=== PATIENT | female | born 1950 | race Caucasian/White ===

== ENCOUNTER 2017-03-27 13:00 | Outpatient (CLI) | payer MEDICARE, OTHER | END 2017-03-27 13:01 | disposition home or self-care (01) | LOC: BICRAD 13:00 | PROVIDERS: ATTEND Family Medicine | DX: R07.9 Chest pain, unspecified (principal); R05 Cough; I70.0 Atherosclerosis of aorta; I77.819 Aortic ectasia, unspecified site; Z98.890 Other specified postprocedural states | CPT/HCPCS: 71020 ==

== ENCOUNTER 2017-12-20 09:52 | Outpatient (CLI) | payer MEDICARE, OTHER | END 2017-12-20 09:53 | disposition home or self-care (01) | LOC: BICMAMMO 09:52 | PROVIDERS: ATTEND Internal Medicine Geriatric Medicine | DX: Z12.31 Encounter for screening mammogram for malignant neoplasm of breast (principal) | CPT/HCPCS: 77063; 77067 ==

== ENCOUNTER 2018-02-14 10:07 | Day surgery (SDC) | payer MEDICARE, MEDICAID ==
[2018-02-13 09:15] VITALS: BMI 27.4
[2018-02-14] MEDS ORDERED: Lidocaine 1% PF 5 ML VIAL ONE (11:11)
[2018-02-14] MEDS ORDERED: PROPOFOL 200 MG/20 ML VIAL ONE (11:11)
--- NOTE | 2018-02-14 12:59 | OP ---
DATE OF PROCEDURE: 02/14/2018 SURGEON: Tera Bradford M.D. PREOPERATIVE DIAGNOSES: 1. Recent episode of rectal bleeding, resolved. 2. Mild anemia, hemoglobin 11.4 down from 14 in October. POSTOPERATIVE DIAGNOSES: 1. Esophagogastroduodenoscopy notable from La fundoplication. 2. Otherwise, normal esophagogastroduodenoscopy. 3. Diverticulosis coli throughout the colon. 4. Small internal hemorrhoids. 5. Two polyps, one in the right colon removed by snare polypectomy and one in the sigmoid removed by snare polypectomy, both less than 5 mm. RECOMMENDATIONS: 1. Repeat colonoscopy in 5 years ago with regard to prior history of colon polyps. 2. High fiber diet. I suspect her bleeding was either diverticular or hemorrhoidal. She had a antoine inal prep, but I did not see evidence of stercoral ulcers or bleeding related to severe constipation. 3. PPIs. 4. Avoid NSAIDs. ANESTHESIA: TIVA. PROCEDURE IN DETAIL: After the patient was informed of the risks, benefits, and possible complicatio ns of endoscopy including perforation, bleeding, reactions to medication and aspiration, informed con sent was obtained. The patient was brought to endoscopy suite where she was sedated in gradual fashi on. Once she was comfortable, a bite block was placed in the incisural orifice. The endoscope was a dvanced through the esophagus, stomach, second and third portion of duodenum. The esophagus was norm al except for a small hiatal hernia. There were no erosions, ulcers or Clinton's. The anatomy at th e GE junction was consistent with previous La fundoplication. Retroflexed views confirmed this. Forward views in the stomach, duodenum, second and third portion appeared normal. The scope was rem dominic. The patient was turned in the room. The endoscope was advanced in the anal canal. The prep was poor . About 500 mL of sterile water was used to irrigate and clear the colon as much as possible. There was diverticulosis coli throughout the colon. There were no bleeding sites identified. There were 2 polyps, both 5 mm in size, one in the sigmoid and one in the right colon removed by hot snare polyp ectomy and submitted to Pathology. Retroflexed views in the rectum were otherwise normal. Again, no bleeding was seen. The scope was removed. The patient tolerated the procedure well with no complic ations. RECOMMENDATIONS: 1. Repeat colonoscopy in 5 years. 2. Follow up in my office if bleeding returns. 3. Stool softeners and fiber daily. 4. Continue PPI therapy.
--- NOTE | 2018-02-14 15:54 | EKG ---
Test Reason : PREOP Blood Pressure : / mmHG Vent. Rate : 073 BPM Atrial Rate : 073 BPM P-R Int : 154 ms QRS Dur : 076 ms QT Int : 420 ms P-R-T Axes : 038 005 059 degrees QTc Int : 462 ms Normal sinus rhythm Inferior infarct , age undetermined cannot be excluded Abnormal ECG Confirmed by GAURAV GRANDE ([id number]) on 02/14/2018 3:54:22 PM Referred By: HEATHER Confirmed By:GAURAV GRANDE
== END 2018-02-14 13:30 | disposition home or self-care (01) ==
LOC: SDC 10:07
PROVIDERS: ATTEND Internal Medicine Gastroenterology
PROC: 0DJ08ZZ Inspection of Upper Intestinal Tract, Via Natural or Artificial Opening Endoscopic (ICD-10-PCS; principal; 2018-02-14)
PROC: 0DBK8ZX Excision of Ascending Colon, Via Natural or Artificial Opening Endoscopic, Diagnostic (ICD-10-PCS; 2018-02-14)
PROC: 0DBN8ZX Excision of Sigmoid Colon, Via Natural or Artificial Opening Endoscopic, Diagnostic (ICD-10-PCS; 2018-02-14)
DX: K57.31 Diverticulosis of large intestine without perforation or abscess with bleeding (principal); D12.5 Benign neoplasm of sigmoid colon; K63.5 Polyp of colon; K64.8 Other hemorrhoids; K44.9 Diaphragmatic hernia without obstruction or gangrene; K21.9 Gastro-esophageal reflux disease without esophagitis; F41.9 Anxiety disorder, unspecified; I25.2 Old myocardial infarction; E78.00 Pure hypercholesterolemia, unspecified; K58.9 Irritable bowel syndrome, unspecified; G47.30 Sleep apnea, unspecified; Z86.010 Personal history of colon polyps; Z87.891 Personal history of nicotine dependence; Z79.899 Other long term (current) drug therapy; Z98.890 Other specified postprocedural states; Z88.8 Allergy status to other drugs, medicaments and biological substances; Z91.011 Allergy to milk products; Z91.02 Food additives allergy status; Z95.1 Presence of aortocoronary bypass graft
CPT/HCPCS: 88305; 93005; 93010; J2001; J2704

== ENCOUNTER 2018-02-16 14:23 | Outpatient (CLI) | payer MEDICARE, MEDICAID ==
[2018-02-16 16:01] LABS: Hemoglobin 11.1 g/dL (12.0-16.0); Mean Corpuscular HGB CONC 32.7 g/dL (32.0-36.0); Mean Corpuscular Volume 91.8 fL (78.0-98.0); Mean Platelet Volume 7.7 fL (7.4-10.4); Platelet Count 260 thou/uL (130-400); RBC Distribution Width 12.7 % (11.5-14.5); Red Blood Cell (RBC) Count 3.68 mill/uL (4.20-5.40); White Blood Cell (WBC) Count 7.5 thou/uL (4.8-10.8)
[2018-02-16 16:18] LABS: Anion Gap 11 mmol/L (10-20); BUN (Urea Nitrogen) 7 mg/dL (9.8-20.1); Calc. Creatinine Clearance 0 mL/min (70-130); Calcium 9.2 mg/dL (7.8-10.44); Carbon Dioxide 26 mmol/L (23-31); Chloride 104 mmol/L (98-107); Estimated GFR-MDRD 87; Glucose 95 mg/dL (80-115); Potassium 3.9 mmol/L (3.5-5.1); Sodium 137 mmol/L (136-145)
== END 2018-02-16 14:24 | disposition home or self-care (01) ==
LOC: LABBT 14:23
PROVIDERS: ATTEND Internal Medicine Cardiovascular Disease
DX: Z01.812 Encounter for preprocedural laboratory examination (principal); K62.5 Hemorrhage of anus and rectum; K21.9 Gastro-esophageal reflux disease without esophagitis
CPT/HCPCS: 80048; 85027

== ENCOUNTER 2018-02-21 06:10 | Day surgery (SDC) | payer MEDICARE, MEDICAID ==
[2018-02-16 14:53] VITALS: BMI 28.0
[2018-02-21] MEDS ORDERED: Fentanyl 100 MCG/2 ML VIAL ONE (06:36)
[2018-02-21] MEDS ORDERED: Midazolam HCl 2 mg/2 ml Vial ONE (06:36)
[2018-02-21] MEDS ORDERED: Lidocaine 1% (PF) 30 ML VIAL ONE (06:36)
[2018-02-21] MEDS ORDERED: Diazepam 5 MG TAB ONE (06:45)
[2018-02-21 07:03] LABS: INR-International Normal Ratio 1.1; PTT 26.2 SEC (22.9-36.1); Prothrombin Time 14.2 SEC (12.0-14.7)
[2018-02-21] MEDS ORDERED: Nitroglycerin 100MG/250ML BOT 250 ML ONE (08:10)
[2018-02-21] MEDS ORDERED: Iopamidol 370 76% 100 ML VIAL ONE (10:44)
--- NOTE | 2018-02-21 13:04 | DIS ---
Ms. Petit underwent cardiac catheterization today. It revealed the followin. Left main no obstructive stenosis. 2. LAD approximately 40% plaque, but the internal mammary graft is patent. 3. Circumflex is occluded with a widely patent graft with good flow. 4. Right coronary, there is a stent in the proximal right coronary, it is patent with no restenosis. There is diffusely diseased vessel more distally. This supplies the right ventricular branch as we ll as a very small part of the inferior wall. 5. Right coronary artery graft which I believe was placed in 2001 does have approximately 50% lesion , does not look flow limiting. Based on this, the patient should be treated medically. We have added Imdur 30 mg a day, added Plavi x 75 mg once a day starting on Monday. She said she cannot take aspirin it "tears her stomach up". At this point, no other intervention would be really appropriate. The patient does have problem with alcohol intake and the patient is well aware that is a problem for her. She recently had polyps removed. That was probably the source of her lower gastrointestinal b leeding. Her hemoglobin is 11.1.
== END 2018-02-21 13:50 | disposition home or self-care (01) ==
LOC: CCL 06:10
PROVIDERS: ATTEND Internal Medicine Cardiovascular Disease
PROC: 4A023N7 Measurement of Cardiac Sampling and Pressure, Left Heart, Percutaneous Approach (ICD-10-PCS; principal; 2018-02-21)
PROC: B2131ZZ Fluoroscopy of Multiple Coronary Artery Bypass Grafts using Low Osmolar Contrast (ICD-10-PCS; 2018-02-21)
PROC: B2111ZZ Fluoroscopy of Multiple Coronary Arteries using Low Osmolar Contrast (ICD-10-PCS; 2018-02-21)
PROC: B2181ZZ Fluoroscopy of Left Internal Mammary Bypass Graft using Low Osmolar Contrast (ICD-10-PCS; 2018-02-21)
DX: I25.110 Atherosclerotic heart disease of native coronary artery with unstable angina pectoris (principal); E78.00 Pure hypercholesterolemia, unspecified; I10 Essential (primary) hypertension; E78.5 Hyperlipidemia, unspecified; E78.2 Mixed hyperlipidemia; Z87.891 Personal history of nicotine dependence; Z79.899 Other long term (current) drug therapy; Z88.8 Allergy status to other drugs, medicaments and biological substances; Z91.02 Food additives allergy status; Z95.1 Presence of aortocoronary bypass graft; Z95.5 Presence of coronary angioplasty implant and graft
CPT/HCPCS: 76942; 85610; 85730; 93459; 99152; 99153; C1769; J1644; J2001; J2250; J3010

== ENCOUNTER 2018-09-12 19:30 | Outpatient (CLI) | payer MEDICARE, OTHER | END 2018-09-12 19:31 | disposition home or self-care (01) | LOC: SLEEPLAB 19:30 | PROVIDERS: ATTEND Physician Assistant | DX: G47.33 Obstructive sleep apnea (adult) (pediatric) (principal) | CPT/HCPCS: 95810 ==

== ENCOUNTER 2019-02-25 13:22 | Outpatient (CLI) | payer MEDICARE, OTHER ==
--- NOTE | 2019-02-25 14:02 | MMO ---
Bilateral MAMMO Bilat Screen [facility]. CLINICAL HISTORY: Patient is 68 years old and is seen for screening. The patient has no family history of breast cancer. The patient has no personal history of cancer. VIEWS: The views performed were: bilateral craniocaudal with tomosynthesis and bilateral mediolateral oblique with tomosynthesis. FILMS COMPARED: The present examination has been compared to prior imaging studies performed at [facility] on 02/24/2014, 04/15/2015, 12/15/2016 and 12/20/2017. This study has been interpreted with the assistance of computer-aided detection. MAMMOGRAM FINDINGS: There are scattered fibroglandular densities. There are vascular calcifications seen in both breasts. There are no suspicious masses, suspicious calcifications, or new areas of architectural distortion. IMPRESSION: A ROUTINE FOLLOW-UP MAMMOGRAM IN 1 YEAR IS RECOMMENDED. THE RESULTS OF THIS EXAM WERE SENT TO THE PATIENT. ACR BI-RADS Category 2 - Benign finding MAMMOGRAPHY NOTE: 1. A negative mammogram report should not delay a biopsy if a dominant of clinically suspicious mass is present. 2. Approximately 10% to 15% of breast cancers are not detected by mammography. 3. Adenosis and dense breasts may obscure an underlying neoplasm. Reported by: SARI SANTOS MD Electonically Signed: [id number]
== END 2019-02-25 13:23 | disposition home or self-care (01) ==
LOC: BICMAMMO 13:22
PROVIDERS: ATTEND Family Medicine
DX: Z12.31 Encounter for screening mammogram for malignant neoplasm of breast (principal)
CPT/HCPCS: 77063; 77067

== ENCOUNTER 2019-04-14 10:58 | Emergency (ER) | payer MEDICARE, OTHER ==
--- NOTE | 2019-04-14 12:00 | RAD ---
CHEST 2 VIEWS: HISTORY: Cough and flu-like symptoms. COMPARISON: Chest radiograph 07/18/2014. FINDINGS: Mild increased interstitial markings along the hilum bilaterally. No pneumothorax. No effusion. No acute osseous abnormality. Multiple midline sternotomy wires. Right upper quadrant surgical clips. IMPRESSION: Findings which can be seen with viral infectious process. POS: HOME
[2019-04-14 12:53] LABS: #Basophils 0.1 thou/uL (0.0-0.2); #Eosinphils 0.1 thou/uL (0.0-0.7); #Lymphocytes 2.9 thou/uL (1.20-3.40); #Neutrophils 6.2 thou/uL (1.40-6.50); %Basophils 0.7 % (0.0-1.0); %Eosinophils 1.2 % (0.0-10.0); %Lymphocytes 28.4 % (21.0-51.0); %Neutrophils 59.7 % (42.0-75.0); Hemoglobin 14.2 g/dL (12.0-16.0); Mean Corpuscular HGB CONC 33.4 g/dL (32.0-36.0); Mean Corpuscular Hemoglobin 30.4 pg (27.0-31.0); Mean Platelet Volume 7.8 fL (7.4-10.4); Platelet Count 219 thou/uL (130-400); RBC Distribution Width 12.6 % (11.5-14.5); Red Blood Cell (RBC) Count 4.68 mill/uL (4.20-5.40); White Blood Cell (WBC) Count 10.3 thou/uL (4.8-10.8)
[2019-04-14] MEDS ORDERED: Azithromycin 250 MG TAB ONE (13:02)
[2019-04-14 13:14] LABS: Anion Gap 17 mmol/L (10-20); BUN (Urea Nitrogen) 7 mg/dL (9.8-20.1); Calc. Creatinine Clearance 0 mL/min (70-130); Calcium 9.2 mg/dL (7.8-10.44); Carbon Dioxide 23 mmol/L (23-31); Chloride 104 mmol/L (98-107); Estimated GFR-MDRD Greater than 90; Glucose 110 mg/dL (80-115); Potassium 4.5 mmol/L (3.5-5.1); Sodium 139 mmol/L (136-145)
== END 2019-04-14 13:17 | disposition home or self-care (01) ==
LOC: ERS 10:58
DX: R05 Cough (principal); I10 Essential (primary) hypertension; E78.5 Hyperlipidemia, unspecified; E78.00 Pure hypercholesterolemia, unspecified; F41.9 Anxiety disorder, unspecified; Z79.899 Other long term (current) drug therapy
CPT/HCPCS: 36415; 71046; 80048; 85025; 87804; 94640; J7620

== ENCOUNTER 2019-05-20 08:01 | Emergency (ER) | payer MEDICARE, MEDICAID ==
[2019-05-20] MEDS ORDERED: Ibuprofen 800 MG TAB ONE (09:14)
[2019-05-20] MEDS ORDERED: Acetaminophen 500 MG TAB ONE (09:14)
--- NOTE | 2019-05-20 09:35 | RAD ---
PA AND LATERAL CHEST: Date: 05/20/2019 INDICATION: History of sore throat, cough, headache, and malaise. COMPARISON: Prior exam dated 04/14/19. FINDINGS: There is worsening air space opacity in the left lower lobe suspicious for developing pneumonia in th e left lower lobe. Right lung is clear. Mild cardiomegaly and post CABG is stable. Cholecystectomy ch anges are stable. No acute osseous abnormality is evident. IMPRESSION: Developing opacity in the left lower lobe suspicious for developing superimposed pneumonia. Recommend radiographic follow-up to resolution. POS: [facility]
[2019-05-20] MEDS ORDERED: Dexamethasone 10 MG/ML VIAL ONE (10:48)
[2019-05-20] MEDS ORDERED: Lidocaine 1% PF 5 ML VIAL ONE (10:48)
[2019-05-20] MEDS ORDERED: cefTRIAXone\\ROCEPHIN 1 GM VIAL ONE (10:48)
[2019-05-20] MEDS ORDERED: Azithromycin 250 MG TAB ONE (10:49)
== END 2019-05-20 12:02 | disposition home or self-care (01) ==
LOC: ERS 08:01
DX: J18.9 Pneumonia, unspecified organism (principal); E78.5 Hyperlipidemia, unspecified; I10 Essential (primary) hypertension; E78.00 Pure hypercholesterolemia, unspecified; F41.9 Anxiety disorder, unspecified; Z79.899 Other long term (current) drug therapy
CPT/HCPCS: 71046; 87081; 87430; 87804; 96372; J0696; J1100; J2001; J7620

== ENCOUNTER 2019-10-11 10:06 | Observation (INO) | payer MEDICARE, MEDICAID ==
[2019-10-11 11:24] LABS: #Basophils 0.1 thou/uL (0.0-0.2); #Eosinphils 0.2 thou/uL (0.0-0.7); #Lymphocytes 2.6 thou/uL (1.20-3.40); #Monocytes 0.6 thou/uL (0.11-0.59); #Neutrophils 3.1 thou/uL (1.40-6.50); %Eosinophils 2.4 % (0.0-10.0); %Lymphocytes 40.3 % (21.0-51.0); %Neutrophils 47.4 % (42.0-75.0); Hemoglobin 14.4 g/dL (12.0-16.0); Mean Corpuscular HGB CONC 33.6 g/dL (32.0-36.0); Mean Corpuscular Volume 92.3 fL (78.0-98.0); Mean Platelet Volume 8.2 fL (7.4-10.4); Platelet Count 210 thou/uL (130-400); RBC Distribution Width 12.5 % (11.5-14.5); Red Blood Cell (RBC) Count 4.65 mill/uL (4.20-5.40); White Blood Cell (WBC) Count 6.5 thou/uL (4.8-10.8)
[2019-10-11 11:49] LABS: ALT (SGPT) 44 U/L (8-55); AST (SGOT) 49 U/L (5-34); Albumin 4.2 g/dL (3.4-4.8); Alkaline Phosphatase 51 U/L (40-110); Anion Gap 13 mmol/L (10-20); BUN (Urea Nitrogen) 6 mg/dL (9.8-20.1); Bilirubin, Total 0.4 mg/dL (0.2-1.2); CK (CPK) 58 U/L (29-168); Calc. Creatinine Clearance 0 mL/min (70-130); Calcium 9.3 mg/dL (7.8-10.44); Carbon Dioxide 25 mmol/L (23-31); Chloride 102 mmol/L (98-107); Estimated GFR-MDRD Greater than 90; Globulin 3.4 g/dL (2.4-3.5); Glucose 112 mg/dL (80-115); Lipase 53 U/L (8-78); Magnesium 1.7 mg/dL (1.6-2.6); Potassium 4.1 mmol/L (3.5-5.1); Protein, Total 7.6 g/dL (6.0-8.3); Sodium 136 mmol/L (136-145)
[2019-10-11] MEDS ORDERED: Nitroglycerin 2% Ointment 1 INCH/1 GM Packet ONE (12:15)
--- NOTE | 2019-10-11 12:56 | RAD ---
PORTABLE CHEST 1 VIEW: DATE: 10/11/2019. TIME: 10:43 AM. HISTORY: Chest pain. COMPARISON: 05/20/2019. FINDINGS: There are changes of median sternotomy. The heart size is normal. The aorta is tortuous. Mild healthcare analyst catalina changes are again seen. No lobar consolidation, pneumothoraces, or pleural effusions identified. There are degenerative changes in the spine. IMPRESSION: No radiographic evidence of acute cardiopulmonary process. POS: [facility]
[2019-10-11] MEDS ORDERED: Ondansetron ODT 4 MG TAB SL PRN (14:25)
[2019-10-11] MEDS ORDERED: Ondansetron PF 4 MG/2 ML Vial IVP PRN ×2 (14:25→15:14)
[2019-10-11 14:26] VITALS: BMI 27.6
[2019-10-11] MEDS ORDERED: Ondansetron ODT 4 MG TAB PO PRN (15:14)
[2019-10-11] MEDS ORDERED: Nitroglycerin 0.4 MG TAB (25 Tab Bottle) PO PRN (15:14)
[2019-10-11] MEDS ORDERED: hydrALAZINE 20 MG/ML VIAL SLOW IVP PRN (15:14)
[2019-10-11] MEDS ORDERED: Acetaminophen 325 MG TAB PO PRN (15:14)
[2019-10-11 15:41] LABS: Troponin I 0.015 ng/mL (< 0.028)
--- NOTE | 2019-10-11 17:24 | CON ---
DATE OF CONSULTATION: 10/11/2019 REASON FOR CONSULTATION: Chest pain. PRIMARY MAC DEVELOPER: Kingston Zaragoza MD HISTORY OF PRESENT ILLNESS: Ms. Petit is a very pleasant 68-year-old white female, who comes to the hospital for chest pain. She has a history of coronary artery disease with previous bypass. Her last catheterization was back in February of 2018, at which time she was found to have widely patent vein grafts. The RCA vein graft had about a 50% plaque in the middle of the vein graft with a patent RCA beyond the bypass. She had been doing well since. She came in today as she has been noticing worsening chest tightness. Her troponin has been completely normal. Cardiology has been consulted for further evaluation and care. PAST MEDICAL HISTORY: 1. Coronary artery disease as above. 2. Hypertension. 3. Hyperlipidemia. SURGICAL HISTORY: 1. Coronary artery bypass grafting. 2. Cardiac catheterization in 2017 showing BARRIOS to the LAD is widely patent, completely occluded circumflex to the patent SVG to the circumflex system with good flow. There was a RCA stent in the tetlin vessel, which was patent. There is a long 80% lesion distal to the stent and a vein graft that is patent distally to this obstruction and patent SVG distal to this. 3. Cholecystectomy. FAMILY HISTORY: Mother with sudden cardiac . SOCIAL HISTORY: Former smoker. No tobacco or drugs. Currently, no alcohol use. ALLERGIES: 1. ATORVASTATIN. 2. SIMVASTATIN. 3. BUSPAR. OUTPATIENT MEDICATIONS: 1. Sublingual nitroglycerin. 2. Metoprolol succinate 25 mg a day. 3. Lisinopril 2.5 mg a day. 4. Ezetimibe 10 mg a day. 5. Rosuvastatin 20 mg a day. 6. Chlordiazepoxide 25 mg as needed. REVIEW OF SYSTEMS: A 12-point review of systems was done and was all negative unless stated in the history of present illness. PHYSICAL EXAMINATION: VITAL SIGNS: Temperature 97.8, pulse 71, respiratory rate 18, sat 95% on room air, blood pressure 142/81. GENERAL: Awake, alert, oriented x3, in no distress. HEENT: Normocephalic and atraumatic. NECK: Supple. LUNGS: Clear. CARDIOVASCULAR: S1, S2. No S3 or S4. No murmurs. ABDOMEN: Soft. Positive bowel sounds. EXTREMITIES: No edema. SKIN: Warm and dry. LABORATORY DATA: Laboratory work was reviewed. CBC is unremarkable. CMP was unremarkable. GFR of greater than 90. Troponin was negative x2. TSH was normal. Lactic acid was normal. EKG shows a sinus rhythm, no ischemic changes. Chest x-ray was unremarkable. ASSESSMENT: 1. Coronary artery disease. 2. Chronic stable angina. 3. Hypertension. PLAN: 1. Most likely she is having chronic stable angina. We will plan on increasing her antianginal therapy. We will add Imdur 30 mg daily to regimen. 2. She states that she gets severe diarrhea with both Zetia and with Crestor. She has not been taking these actually, so she may need to be considered for Repatha or Praluent in the near future. This will be done as an outpatient. 3. We will get an echocardiogram. If this is unremarkable, we will discharge home. If she fails antianginal therapy, she will need a repeat heart catheterization, but this will be in the long-term. I do not think if she does have ischemia, I would treat her medically first as we know her anatomy and unless her troponin starts to become positive or her symptoms are unstable, I would only treat medically for now. Thank you for letting us to participate in the care of your patient. We will follow. Job ID: [id number]
[2019-10-11 18:59] LABS: Troponin I Less than 0.010 ng/mL (< 0.028)
[2019-10-11] MEDS: Nitroglycerin 2% Ointment 1 INCH/1 GM Packet TOP SCH (20:31)
--- NOTE | 2019-10-11 21:18 | HP ---
PRIMARY CARE PHYSICIAN: At the [facility], Ms. Hess. CHIEF COMPLAINT: Chest pressure. HISTORY OF PRESENT ILLNESS: Ms. Petit is a very pleasant 68-year-old female, who has a history of hypertension, coronary artery disease. She has a history of bypass surgery as well as a previous stent. She says that starting yesterday, she started having some pressure in her chest and was feeling extremely tired. 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 She said it happened while she was washing the dishes. She described it as about 5/10 and says that it basically comes and goes when asked how long it lasts. There was no nausea, no vomiting. She did have some mild shortness of breath. She did not feel dizzy or lightheaded. She noticed some mild lower extremity edema as well. She says it feels "exactly like she felt when she had her heart attack before" and for this reason, she came to the ER for evaluation. The patient last saw Dr. Zaragoza about 5 to 6 months ago and she says she does not believe that she has had a stress test since about a year or so. REVIEW OF SYSTEMS: All systems are reviewed and are negative except for that mentioned in the history of present illness. PAST MEDICAL HISTORY: Significant for hypertension, coronary artery disease, and hyperlipidemia. PAST SURGICAL HISTORY: She has had a stent to the right coronary artery, as well as coronary artery bypass grafting. ALLERGIES: INCLUDE: 1. LIPITOR. 2. BUSPAR. 3. MONOSODIUM GLUTAMATE. SOCIAL HISTORY: She is a nonsmoker. She occasionally drinks. She is single. Her grandson lives with her and she is a full code. FAMILY HISTORY: Significant for aneurysm in her father. CURRENT MEDICATIONS: Include: 1. Metoprolol succinate 25 mg daily. 2. Nitroglycerin 0.4 sublingual p.r.n. 3. Multivitamin once daily. 4. Lisinopril 5 mg daily. 5. Vitamin D3 of 4000 units p.o. daily. PHYSICAL EXAMINATION: GENERAL: She is alert and oriented. She appears to be in no acute distress. She is well developed and well nourished. VITAL SIGNS: Blood pressure was 173/78, heart rate 64, respiratory rate of 18, temperature is 98.1, and O2 saturation is 95% on room air. HEENT: Pupils are equal, round, and reactive. Extraocular muscles are intact. Her sclerae anicteric. Throat, there is no erythema. No exudates. NECK: No adenopathy. No bruits. LUNGS: Clear to auscultation. There is no wheezing, no rales, no rhonchi. CARDIOVASCULAR: She had a normal S1 and S2. There is no S3 or S4. No murmurs, clicks, or rubs. ABDOMEN: Soft, nontender, and nondistended. Positive for bowel sounds. No rebound. No guarding. No organomegaly. EXTREMITIES: There is no clubbing or cyanosis. No edema. No calf tenderness. No joint effusions. NEUROLOGIC: Essentially nonfocal. LABORATORY DATA: White blood cell count is 6.5, hemoglobin 14.4, hematocrit is 42.9, and platelet count is 210. Sodium 136, potassium 4.1, chloride is 102, CO2 is 25, BUN of 6, creatinine 0.63, glucose is 112. TSH is 1.85. EKG with sinus rhythm. She had Q wave in lead III, but otherwise it was negative and so she had some nonspecific ST-T wave changes. Chest x-ray shows some mild cardiomegaly with increased pulmonary vascular markings. ASSESSMENT AND PLAN: This is a pleasant 68-year-old female, who presents to the emergency room with chest pressure, which she says feels "exactly the way it did when she had previous heart attack." She will be placed in observation. We will continue to trend her cardiac enzymes. Continue aspirin and nitrates. Low-dose beta-krunal as tolerated. Obtain a nuclear stress test and also given her complicated cardiac history, I will go ahead and consult her oncologist. 1. Hypertension. We will need to reconcile and restart her blood pressure medicines as well as p.r.n. medicines. 2. Hyperlipidemia. Continue her statin. 3. Further recommendations to follow. Job ID: [id number]
[2019-10-11] MEDS ORDERED: Melatonin 3 MG TAB PO PRN (22:40)
[2019-10-12 04:17] LABS: #Basophils 0.1 thou/uL (0.0-0.2); #Eosinphils 0.2 thou/uL (0.0-0.7); #Lymphocytes 2.4 thou/uL (1.20-3.40); #Monocytes 0.5 thou/uL (0.11-0.59); #Neutrophils 2.7 thou/uL (1.40-6.50); %Basophils 1.3 % (0.0-1.0); %Eosinophils 3.9 % (0.0-10.0); %Lymphocytes 40.2 % (21.0-51.0); %Monocytes 9.1 % (0.0-10.0); %Neutrophils 45.5 % (42.0-75.0); Hemoglobin 13.3 g/dL (12.0-16.0); Mean Corpuscular HGB CONC 34.2 g/dL (32.0-36.0); Mean Corpuscular Hemoglobin 31.2 pg (27.0-31.0); Mean Corpuscular Volume 91.3 fL (78.0-98.0); Mean Platelet Volume 8.5 fL (7.4-10.4); Platelet Count 191 thou/uL (130-400); RBC Distribution Width 12.5 % (11.5-14.5); Red Blood Cell (RBC) Count 4.26 mill/uL (4.20-5.40); White Blood Cell (WBC) Count 5.9 thou/uL (4.8-10.8)
[2019-10-12 04:53] LABS: Anion Gap 10 mmol/L (10-20); BUN (Urea Nitrogen) 6 mg/dL (9.8-20.1); Calc. Creatinine Clearance 94 mL/min (70-130); Carbon Dioxide 28 mmol/L (23-31); Chloride 104 mmol/L (98-107); Estimated GFR-MDRD Greater than 90; Glucose 114 mg/dL (80-115); Sodium 138 mmol/L (136-145)
[2019-10-12] MEDS: Nitroglycerin 2% Ointment 1 INCH/1 GM Packet TOP SCH ×2 (05:30→14:23)
[2019-10-12] MEDS ORDERED: Aspirin 325 mg Enteric Coated Tablet PO SCH (09:00)
[2019-10-12] MEDS ORDERED: Lisinopril 5 MG TAB PO SCH (09:00)
[2019-10-12] MEDS: Enoxaparin Sodium 40 MG/0.4 ML SYRINGE SC SCH ×2 (10:40→10:41)
--- NOTE | 2019-10-12 11:54 | PDOC.HOSPP ---
- Subjective Encounter Date: 10/12/19 Encounter Time: 11:52 Subjective: Ms. Petit was seen today in follow-up of chest pressure. She says she is feeling better today. She did not have any symptoms overnight. - Objective Vital Signs & Weight: Vital Signs (12 hours) Temp Pulse Resp BP BP Pulse Ox 10/12/19 11:35 97.7 F 85 16 143/68 H 93 L 10/12/19 07:25 98.4 F 67 18 140/68 93 L 10/12/19 04:02 98.0 F 63 18 151/72 H 96 Weight Weight 151 lb 4.8 oz I&O: 10/11/19 10/12/19 10/13/19 06:59 06:59 06:59 Intake Total 880 Output Total 2370 Balance -1490 Result Diagrams: 10/12/19 03:45 10/12/19 03:45 Hospitalist ROS - Medication Medications: Active Medications Generic Name Dose Route Start Last Admin Trade Name Freq PRN Reason Stop Dose Admin Aspirin 325 mg 10/12/19 09:00 10/12/19 10:39 Ecotrin PO Not Given DAILY [facility] Enoxaparin Sodium 40 mg 10/12/19 09:00 10/12/19 10:41 Lovenox SC Not Given 0900 [facility] Lisinopril 5 mg 10/12/19 09:00 10/12/19 10:39 Zestril PO 5 mg DAILY [facility] Administration Melatonin 3 mg 10/11/19 22:40 10/11/19 23:03 Melatonin PO 3 mg HS PRN Administration Insomnia Metoprolol Succinate 25 mg 10/12/19 09:00 10/12/19 10:40 Toprol Xl PO 25 mg DAILY [facility] Administration Nitroglycerin 0.5 inch 10/11/19 22:00 10/12/19 05:30 Nitro-Bid 2% Ointment TOP Not Given Q8HR [facility] Pantoprazole Sodium 40 mg 10/12/19 09:00 10/12/19 10:39 Protonix PO Not Given DAILY [facility] - Exam Eye: PERRL Heart: RRR, no murmur, no gallops, no rubs, normal peripheral pulses Respiratory: CTAB, no wheezes, no rales, no ronchi, normal chest expansion, no tachypnea Gastrointestinal: soft, non-tender, non-distended, normal bowel sounds Extremities: no cyanosis, no edema Hosp A/P (1) Chest pain Code(s): R07.9 - CHEST PAIN, UNSPECIFIED Status: Acute (2) Hyperlipidemia Code(s): E78.5 - HYPERLIPIDEMIA, UNSPECIFIED Status: Chronic (3) Hypertension Code(s): I10 - ESSENTIAL (PRIMARY) HYPERTENSION Status: Chronic (4) CAD (coronary artery disease) Code(s): I25.10 - ATHSCL HEART DISEASE OF [place] CORONARY ARTERY W/O ANG PCTRS Status: Chronic - Plan * Chest pain- as per Cardiology- this is stable angina * Echo has been order, and await results * HTN- blood pressure is stable * Dyslipidemia- She may be a candidate for Repatha * Await Cardiology recommendations
[2019-10-12 15:32] VITALS: BP 140/76; TEMP 98
--- NOTE | 2019-10-12 15:32 | PDOC.CPN ---
- Subjective Date: 10/12/19 Time: 15:30 Interval history: No more chest pains. No new issues. - Review of Systems General: denies: fever/chills, weight/appetite/sleep changes, night sweats, fatigue Respiratory: denies: cough, congestion, shortness of breath, exercise intolerance Cardiovascular: denies: chest pain, palpitation, edema, paroxysmal nocturnal dyspnea, orthopnea Gastrointestinal: denies: nausea, vomiting, diarrhea, constipation, abd pain, GI bleeding Musculoskeletal: denies: pain, tenderness, stiffness, swelling, arthritis/ arthralgias Neurological: denies: numbness, syncope, seizure, weakness - Objective Allergies/Adverse Reactions: Allergies Allergy/AdvReac Type Severity Reaction Status Date / Time atorvastatin calcium Allergy Verified 07/08/19 23:51 [From Lipitor] buspirone HCl [From BuSpar] Allergy Verified 07/08/19 23:51 monosodium glutamate Allergy Verified 07/08/19 23:51 simvastatin Allergy Verified 07/08/19 23:51 Visit Medications: Current Medications Acetaminophen (Tylenol) 650 mg PO Q4H PRN PRN Reason: Headache/Fever/Mild Pain (1-3) Aspirin (Ecotrin) 325 mg PO DAILY [facility] Last Admin: 10/12/19 10:39 Dose: Not Given Cholecalciferol (Vitamin D3) 4,000 units PO Q7DAYS [facility] Enoxaparin Sodium (Lovenox) 40 mg SC 0900 [facility] Last Admin: 10/12/19 10:41 Dose: Not Given Hydralazine HCl (Apresoline) 10 mg SLOW IVP Q4H PRN PRN Reason: SBP > 180 and HR < 70 Lisinopril (Zestril) 5 mg PO DAILY [facility] Last Admin: 10/12/19 10:39 Dose: 5 mg Melatonin (Melatonin) 3 mg PO HS PRN PRN Reason: Insomnia Last Admin: 10/11/19 23:03 Dose: 3 mg Metoprolol Succinate (Toprol Xl) 25 mg PO DAILY [facility] Last Admin: 10/12/19 10:40 Dose: 25 mg Nitroglycerin (Nitro-Bid 2% Ointment) 0.5 inch TOP Q8HR [facility] Last Admin: 10/12/19 14:23 Dose: 0.5 inch Nitroglycerin (Nitrostat) 0.4 mg PO Q5MIN PRN PRN Reason: Chest Pain Ondansetron HCl (Zofran Odt) 4 mg PO Q6H PRN PRN Reason: Nausea/Vomiting Ondansetron HCl (Zofran) 4 mg IVP Q6H PRN PRN Reason: Nausea/Vomiting Pantoprazole Sodium (Protonix) 40 mg PO DAILY [facility] Last Admin: 10/12/19 10:39 Dose: Not Given Vital Signs & Weight: Vital Signs Temp Pulse Resp BP BP Pulse Ox 10/12/19 11:35 97.7 F 85 16 143/68 H 93 L 10/12/19 07:25 98.4 F 67 18 140/68 93 L 10/12/19 04:02 98.0 F 63 18 151/72 H 96 Admit Weight 151 lb 4.8 oz Weight 151 lb 4.8 oz - Physical Exam General: alert & oriented x3 HEENT: mucus membranes moist Neck: supple neck Cardiac: regular rate and rhythm Lungs: clear to auscultation Neuro: grossly intact Abdomen: active bowel sounds Extremities: no edema Skin: clear Musculoskeletal: no pain - Labs Result Diagrams: 10/12/19 03:45 10/12/19 03:45 Troponin/CKMB Troponin I Less than 0.010 ng/mL (< 0.028) 10/11/19 18:10 - Telemetry Sinus rhythms and dysrhythmias: sinus rhythm - Assessment/Plan Assessment/Plan: 1. Chronic stable angina 2. CAD, no ACS. 3. S/P CABG PLAN: - Unremarkable echo - Add Imdur 30 mg daily to her regimen - August discharge home. - Follow up with Dr. Zaragoza in 2-4 weeks.
--- NOTE | 2019-10-12 18:48 | DIS ---
DATE OF ADMISSION: 10/11/2019 DATE OF DISCHARGE: 10/12/2019 PRIMARY CARE PHYSICIAN: Ms. Hess at [facility]. DISCHARGE DISPOSITION: Home. DISCHARGE DIAGNOSES: 1. Stable angina. 2. Coronary artery disease. 3. Hypertension. 4. Dyslipidemia. DISCHARGE MEDICATIONS: Include, 1. Toprol-XL 25 mg p.o. daily. 2. Isosorbide mononitrate 30 mg daily. 3. Nitroglycerin 0.4 sublingual p.r.n. 4. Multivitamin once a day. 5. Lisinopril 5 mg p.o. daily. 6. Vitamin D 4000 units p.o. daily. CODE STATUS: Full code. ALLERGIES: ATORVASTATIN, BUSPIRONE, MONOSODIUM GLUTAMATE, AND SIMVASTATIN. IMAGING: The patient had an echocardiogram, which showed an ejection fraction of 55% to 60%. There was grade 1/3 diastolic dysfunction. Moderately dilated left atrium. HOSPITAL COURSE: Ms. Petit is a pleasant 68-year-old female, who came to the emergency room with complaints of chest pain and chest pressure. She said her symptoms were exactly the same as when she had to have surgery for her heart. For this reason, she was placed in observation and her hand stoner was consulted. He felt that her symptoms were related to stable angina and should respond to medical treatment. An echocardiogram was done to assess her wall motion. This appeared to be clinically stable. Imdur was added to her regimen and she was subsequently discharged home to have close followup with Dr. Zaragoza who is her usual hand stoner and with her primary care physician in 1 to 2 weeks. Job ID: [id number]
== END 2019-10-12 16:20 | disposition home or self-care (01) ==
LOC: ERS 10:06 → 2NO 12:48 → INTOOBSV 12:48
PROVIDERS: ADMIT Internal Medicine; ATTEND Internal Medicine
DX: I25.118 Atherosclerotic heart disease of native coronary artery with other forms of angina pectoris (principal); I10 Essential (primary) hypertension; E78.5 Hyperlipidemia, unspecified; Z79.899 Other long term (current) drug therapy; Z88.8 Allergy status to other drugs, medicaments and biological substances; Z95.1 Presence of aortocoronary bypass graft
CPT/HCPCS: 36415; 71045; 80048; 80053; 82550; 83605; 83690; 83735; 84443; 84484; 85025; 93005; 93306; 94760; G0378; J1650

== ENCOUNTER 2020-02-27 10:26 | Outpatient (CLI) | payer MEDICARE, MEDICAID ==
--- NOTE | 2020-02-27 14:21 | MMO ---
Bilateral MAMMO Bilat Screen [facility]. CLINICAL HISTORY: Patient is 69 years old and is seen for screening. The patient has no family history of breast cancer. The patient has no personal history of cancer. VIEWS: The views performed were: bilateral craniocaudal with tomosynthesis and bilateral mediolateral oblique with tomosynthesis. FILMS COMPARED: The present examination has been compared to prior imaging studies performed at [facility] on 04/15/2015, 12/15/2016, 12/20/2017 and 02/25/2019. This study has been interpreted with the assistance of computer-aided detection. MAMMOGRAM FINDINGS: There are scattered fibroglandular densities. Benign calcifications are noted bilaterally. There are no suspicious masses, suspicious calcifications, or new areas of architectural distortion. IMPRESSION: THERE IS NO MAMMOGRAPHIC EVIDENCE OF MALIGNANCY. A ROUTINE FOLLOW-UP MAMMOGRAM IN 1 YEAR IS RECOMMENDED. THE RESULTS OF THIS EXAM WERE SENT TO THE PATIENT. ACR BI-RADS Category 2 - Benign finding MAMMOGRAPHY NOTE: 1. A negative mammogram report should not delay a biopsy if a dominant of clinically suspicious mass is present. 2. Approximately 10% to 15% of breast cancers are not detected by mammography. 3. Adenosis and dense breasts may obscure an underlying neoplasm. Reported by: NATIVIDAD JEAN MD Electonically Signed: [id number]
== END 2020-02-27 10:27 | disposition home or self-care (01) ==
LOC: BICMAMMO 10:26
PROVIDERS: ATTEND Family Medicine
DX: Z12.31 Encounter for screening mammogram for malignant neoplasm of breast (principal)
CPT/HCPCS: 77063; 77067

== ENCOUNTER 2020-06-12 14:35 | Outpatient (CLI) | payer MEDICARE, MEDICAID ==
--- NOTE | 2020-06-12 17:31 | RAD ---
LUMBAR SPINE TWO VIEWS: 06/12/20 INDICATION: Low back pain with right sided sciatica. COMPARISON: PA and lateral of the chest dated 04/04/19. FINDINGS: There is stable mild wedge compression of L2. There is grade I anterolisthesis of L4 on L5. There is mild retrolisthesis of L3 on L4 and L2 on L3 which are likely degenerative. There is moderate calcifi cations involving the abdominal aorta. Surgical clips are seen within the right upper quadrant. No ac [place] fracture or subluxation is evident. There are five lumbar type vertebrae. There is a moderate da unt of retained stool within the colon. IMPRESSION: 1. Moderate to severe lumbar spondylosis. 2. Chronic wedge compression fracture of L2. POS: [facility]
== END 2020-06-12 14:36 | disposition home or self-care (01) ==
LOC: BICRAD 14:35
PROVIDERS: ATTEND Family Medicine
DX: M54.41 Lumbago with sciatica, right side (principal); M47.816 Spondylosis without myelopathy or radiculopathy, lumbar region; M48.56XA Collapsed vertebra, not elsewhere classified, lumbar region, initial encounter for fracture
CPT/HCPCS: 72100

== ENCOUNTER 2020-06-29 08:44 | Outpatient (CLI) | payer MEDICARE, MEDICAID | END 2020-06-29 08:45 | disposition home or self-care (01) | LOC: BICMAMMO 08:44 | PROVIDERS: ATTEND Family Medicine | DX: Z13.820 Encounter for screening for osteoporosis (principal) | CPT/HCPCS: 77080 ==

== ENCOUNTER 2020-06-29 10:31 | Outpatient (CLI) | payer MEDICARE, MEDICAID | END 2020-06-29 10:32 | disposition home or self-care (01) | LOC: BICMRI 10:31 | PROVIDERS: ATTEND Family Medicine | DX: M54.41 Lumbago with sciatica, right side (principal); G89.29 Other chronic pain; M47.816 Spondylosis without myelopathy or radiculopathy, lumbar region; Z13.820 Encounter for screening for osteoporosis; Z78.0 Asymptomatic menopausal state | CPT/HCPCS: 72148; 77080 ==

== ENCOUNTER 2021-02-11 07:14 | Outpatient (CLI) | payer MEDICARE, MEDICAID | END 2021-02-11 07:15 | disposition home or self-care (01) | LOC: BICULT 07:14 | PROVIDERS: ATTEND Family Medicine | DX: R10.13 Epigastric pain (principal); K76.0 Fatty (change of) liver, not elsewhere classified | CPT/HCPCS: 76700; 76856 ==

== ENCOUNTER 2021-03-05 10:47 | Outpatient (CLI) | payer MEDICARE, OTHER | END 2021-03-05 10:48 | disposition home or self-care (01) | LOC: BICMAMMO 10:47 | PROVIDERS: ATTEND Family Medicine | DX: N63.20 Unspecified lump in the left breast, unspecified quadrant (principal); N64.4 Mastodynia | CPT/HCPCS: 76642; 77066; G0279 ==

== ENCOUNTER 2021-04-30 14:20 | Inpatient (IN) | payer MEDICARE, MEDICAID ==
[2021-04-30] MEDS ORDERED: Iopamidol-370 76% 500 ML 1 ML ONE (14:51)
[2021-04-30 15:44] VITALS: BMI 27.4
[2021-04-30] MEDS ORDERED: Ondansetron PF 4 MG/2 ML Vial IVP PRN (15:52)
[2021-04-30] MEDS ORDERED: Ondansetron ODT 4 MG TAB PO PRN (15:52)
[2021-04-30] MEDS ORDERED: Acetaminophen 325 MG TAB PO PRN (15:52)
[2021-04-30] MEDS: Sodium Chloride 0.9% 1,000 ML IV SCH (16:28)
[2021-04-30 16:41] LABS: SARS-CoV-2 NAA Rapid Test Not Detected (NotDetected)
[2021-04-30 17:16] LABS: #Basophils 0.1 thou/uL (0.0-0.2); #Eosinphils 0.1 thou/uL (0.0-0.7); #Lymphocytes 2.3 thou/uL (1.20-3.40); #Monocytes 0.7 thou/uL (0.11-0.59); #Neutrophils 3.7 thou/uL (1.40-6.50); %Basophils 1.3 % (0.0-1.0); %Eosinophils 1.9 % (0.0-10.0); %Lymphocytes 33.5 % (21.0-51.0); %Monocytes 9.5 % (0.0-10.0); %Neutrophils 53.7 % (42.0-75.0); Hemoglobin 13.7 g/dL (12.0-16.0); Mean Corpuscular HGB CONC 32.7 g/dL (32.0-36.0); Mean Corpuscular Hemoglobin 30.5 pg (27.0-31.0); Mean Corpuscular Volume 93.2 fL (78.0-98.0); Platelet Count 208 thou/uL (130-400); RBC Distribution Width 12.5 % (11.5-14.5); Red Blood Cell (RBC) Count 4.48 mill/uL (4.20-5.40); White Blood Cell (WBC) Count 6.8 thou/uL (4.8-10.8)
[2021-04-30 17:37] LABS: Anion Gap 13 mmol/L (10-20); BUN (Urea Nitrogen) 7 mg/dL (9.8-20.1); Calc. Creatinine Clearance 90 mL/min (70-130); Calcium 9.1 mg/dL (7.8-10.44); Carbon Dioxide 26 mmol/L (23-31); Chloride 106 mmol/L (98-107); Glucose 102 mg/dL (80-115); Potassium 3.9 mmol/L (3.5-5.1); Sodium 141 mmol/L (136-145)
[2021-04-30] MEDS: Acetaminophen 650 MG Suppository PR PRN (21:02)
[2021-04-30] MEDS: Pantoprazole 40 MG VIAL IVP SCH (21:13)
[2021-05-01 06:21] LABS: #Eosinphils 0.1 thou/uL (0.0-0.7); #Monocytes 0.5 thou/uL (0.11-0.59); #Neutrophils 2.6 thou/uL (1.40-6.50); %Basophils 0.7 % (0.0-1.0); %Eosinophils 2.7 % (0.0-10.0); %Lymphocytes 38.1 % (21.0-51.0); %Monocytes 9.8 % (0.0-10.0); %Neutrophils 48.8 % (42.0-75.0); Hemoglobin 13.7 g/dL (12.0-16.0); Mean Corpuscular HGB CONC 33.4 g/dL (32.0-36.0); Mean Corpuscular Hemoglobin 31.5 pg (27.0-31.0); Mean Corpuscular Volume 94.1 fL (78.0-98.0); Platelet Count 197 thou/uL (130-400); RBC Distribution Width 12.7 % (11.5-14.5); Red Blood Cell (RBC) Count 4.35 mill/uL (4.20-5.40); White Blood Cell (WBC) Count 5.3 thou/uL (4.8-10.8)
[2021-05-01] MEDS: Sodium Chloride 0.9% 1,000 ML IV SCH ×2 (06:32→20:35)
[2021-05-01 06:43] LABS: Anion Gap 12 mmol/L (10-20); BUN (Urea Nitrogen) 8 mg/dL (9.8-20.1); Calc. Creatinine Clearance 86 mL/min (70-130); Calcium 8.9 mg/dL (7.8-10.44); Carbon Dioxide 27 mmol/L (23-31); Chloride 106 mmol/L (98-107); Glucose 117 mg/dL (80-115); Potassium 4.2 mmol/L (3.5-5.1); Sodium 141 mmol/L (136-145)
[2021-05-01] MEDS: Pantoprazole 40 MG VIAL IVP SCH ×2 (10:00→20:36)
[2021-05-01] MEDS: hydrALAZINE 20 MG/ML VIAL SLOW IVP PRN (11:49)
[2021-05-01] MEDS ORDERED: Nitroglycerin 0.4 MG TAB (25 Tab Bottle) SL PRN (11:59)
[2021-05-01] MEDS: Metoprolol Tartrate 5 MG/5 ML VIAL IVP SCH ×3 (13:26→20:36)
[2021-05-01] MEDS ORDERED: Cepastat Lozenges 1 LOZ PO PRN (15:13)
[2021-05-01] MEDS ORDERED: Lorazepam 2 MG/ML VIAL SLOW IVP PRN (19:44)
[2021-05-01] MEDS ORDERED: Melatonin 3 MG TAB PO SCH (20:00)
[2021-05-01] MEDS: Acetaminophen 650 MG Suppository PR PRN (20:37)
[2021-05-02] MEDS: Metoprolol Tartrate 5 MG/5 ML VIAL IVP SCH ×4 (02:24→21:38)
[2021-05-02 07:27] LABS: #Eosinphils 0.1 thou/uL (0.0-0.7); #Lymphocytes 1.7 thou/uL (1.20-3.40); #Monocytes 0.6 thou/uL (0.11-0.59); #Neutrophils 3.4 thou/uL (1.40-6.50); %Basophils 0.5 % (0.0-1.0); %Eosinophils 2.4 % (0.0-10.0); %Lymphocytes 29.5 % (21.0-51.0); %Monocytes 9.7 % (0.0-10.0); Hemoglobin 13.6 g/dL (12.0-16.0); Mean Corpuscular Hemoglobin 30.6 pg (27.0-31.0); Mean Corpuscular Volume 92.6 fL (78.0-98.0); Mean Platelet Volume 8.6 fL (7.4-10.4); Platelet Count 180 thou/uL (130-400); RBC Distribution Width 12.4 % (11.5-14.5); Red Blood Cell (RBC) Count 4.45 mill/uL (4.20-5.40); White Blood Cell (WBC) Count 5.8 thou/uL (4.8-10.8)
[2021-05-02 07:42] LABS: Anion Gap 15 mmol/L (10-20); BUN (Urea Nitrogen) 7 mg/dL (9.8-20.1); Calc. Creatinine Clearance 100 mL/min (70-130); Calcium 8.5 mg/dL (7.8-10.44); Carbon Dioxide 19 mmol/L (23-31); Chloride 107 mmol/L (98-107); Glucose 103 mg/dL (80-115); Potassium 3.8 mmol/L (3.5-5.1); Sodium 137 mmol/L (136-145)
[2021-05-02] MEDS: Pantoprazole 40 MG VIAL IVP SCH ×2 (09:28→21:37)
[2021-05-02] MEDS ORDERED: PROPOFOL 200 MG/20 ML VIAL ONE (10:00)
[2021-05-02] MEDS ORDERED: Lidocaine 1% PF 5 ML VIAL ONE (10:00)
[2021-05-02] MEDS: Sodium Chloride 0.9% 1,000 ML IV SCH (22:04)
[2021-05-03] MEDS: Metoprolol Tartrate 5 MG/5 ML VIAL IVP SCH ×4 (02:33→22:25)
[2021-05-03 06:42] LABS: #Eosinphils 0.2 thou/uL (0.0-0.7); #Lymphocytes 1.7 thou/uL (1.20-3.40); #Monocytes 0.5 thou/uL (0.11-0.59); %Basophils 0.7 % (0.0-1.0); %Eosinophils 2.9 % (0.0-10.0); %Lymphocytes 26.6 % (21.0-51.0); %Monocytes 8.3 % (0.0-10.0); %Neutrophils 61.5 % (42.0-75.0); Hemoglobin 13.2 g/dL (12.0-16.0); Mean Corpuscular HGB CONC 33.2 g/dL (32.0-36.0); Mean Corpuscular Volume 93.4 fL (78.0-98.0); Mean Platelet Volume 8.2 fL (7.4-10.4); Platelet Count 180 thou/uL (130-400); RBC Distribution Width 12.3 % (11.5-14.5); Red Blood Cell (RBC) Count 4.26 mill/uL (4.20-5.40); White Blood Cell (WBC) Count 6.5 thou/uL (4.8-10.8)
[2021-05-03 07:04] LABS: Anion Gap 12 mmol/L (10-20); BUN (Urea Nitrogen) 6 mg/dL (9.8-20.1); Calc. Creatinine Clearance 98 mL/min (70-130); Calcium 8.9 mg/dL (7.8-10.44); Carbon Dioxide 23 mmol/L (23-31); Chloride 107 mmol/L (98-107); Glucose 102 mg/dL (80-115); Potassium 3.6 mmol/L (3.5-5.1); Sodium 138 mmol/L (136-145)
[2021-05-03] MEDS: Sodium Chloride 0.9% 1,000 ML IV SCH ×2 (07:53→10:40)
[2021-05-03] MEDS: Pantoprazole 40 MG VIAL IVP SCH ×2 (08:24→21:50)
[2021-05-03] MEDS: Lorazepam 2 MG/ML VIAL SLOW IVP PRN (21:51)
[2021-05-04] MEDS: Sodium Chloride 0.9% 1,000 ML IV SCH (00:30)
[2021-05-04 06:43] LABS: #Eosinphils 0.2 thou/uL (0.0-0.7); #Lymphocytes 1.2 thou/uL (1.20-3.40); #Monocytes 0.6 thou/uL (0.11-0.59); #Neutrophils 3.6 thou/uL (1.40-6.50); %Basophils 0.8 % (0.0-1.0); %Eosinophils 2.9 % (0.0-10.0); %Lymphocytes 21.7 % (21.0-51.0); %Neutrophils 63.7 % (42.0-75.0); Hemoglobin 13.2 g/dL (12.0-16.0); Mean Corpuscular HGB CONC 32.8 g/dL (32.0-36.0); Mean Corpuscular Hemoglobin 30.9 pg (27.0-31.0); Mean Corpuscular Volume 94.1 fL (78.0-98.0); Mean Platelet Volume 8.5 fL (7.4-10.4); Platelet Count 165 thou/uL (130-400); RBC Distribution Width 12.3 % (11.5-14.5); Red Blood Cell (RBC) Count 4.27 mill/uL (4.20-5.40); White Blood Cell (WBC) Count 5.6 thou/uL (4.8-10.8)
[2021-05-04 06:56] LABS: Anion Gap 13 mmol/L (10-20); BUN (Urea Nitrogen) 4 mg/dL (9.8-20.1); Calc. Creatinine Clearance 89 mL/min (70-130); Calcium 8.7 mg/dL (7.8-10.44); Carbon Dioxide 20 mmol/L (23-31); Chloride 107 mmol/L (98-107); Glucose 177 mg/dL (80-115); Sodium 137 mmol/L (136-145)
[2021-05-04] MEDS: Pantoprazole 40 MG VIAL IVP SCH ×2 (09:39→20:36)
[2021-05-04] MEDS ORDERED: Potassium Chloride 10 MEQ in Premix Bag 1 BAG IVPB SCH (11:45)
[2021-05-04] MEDS ORDERED: Potassium Bicarbonate/Cit Ac 20 MEQ TAB PO SCH (12:15)
[2021-05-04] MEDS ORDERED: ceFAZolin 2 GM/Dextrose 50 ML 2 GM in Premix Bag 1 BAG IVPB SCH (19:00)
[2021-05-04] MEDS: hydrALAZINE 20 MG/ML VIAL SLOW IVP PRN (20:30)
[2021-05-04] MEDS: Lorazepam 2 MG/ML VIAL SLOW IVP PRN (20:32)
[2021-05-05] MEDS: Pantoprazole 40 MG VIAL IVP SCH ×2 (09:30→20:34)
[2021-05-05] MEDS ORDERED: Sodium Chloride 0.9% 0 ML ONE (15:53)
[2021-05-05] MEDS ORDERED: Bupivacaine PF 0.5% 30 ML VIAL ONE (15:53)
[2021-05-05] MEDS ORDERED: Heparin 5,000 UNITS/ML VIAL ONE (15:53)
[2021-05-05] MEDS ORDERED: Lidocaine 2% PF 5 ML VIAL ONE (15:53)
[2021-05-05] MEDS ORDERED: Xylocaine 1% w/ Epi 1:100K 10 ML VIAL ONE (15:53)
[2021-05-05] MEDS ORDERED: Bupivacaine 0.25% HCL 30 ML VIAL ONE (15:55)
[2021-05-05] MEDS ORDERED: Fentanyl 100 MCG/2 ML VIAL ONE ×3 (16:02→18:53)
[2021-05-05] MEDS ORDERED: ceFAZolin 2 GM/Dextrose 50 ML IVPB ONE (16:10)
[2021-05-05] MEDS ORDERED: Dexamethasone 20 MG/5 ML VIAL ONE (16:18)
[2021-05-05] MEDS ORDERED: Glycopyrrolate 0.2 MG/ML 5 ML SYRINGE ONE (16:18)
[2021-05-05] MEDS ORDERED: Rocuronium Bromide 10 MG/ML (10ML VIAL) ONE (16:18)
[2021-05-05] MEDS ORDERED: PROPOFOL 200 MG/20 ML VIAL ONE (16:18)
[2021-05-05] MEDS ORDERED: Ondansetron PF 4 MG/2 ML Vial ONE (16:18)
[2021-05-05] MEDS ORDERED: PHENYLEPHRINE-NS 100 MCG/ML 10 ML SYRINGE ONE (16:18)
[2021-05-05] MEDS ORDERED: Lidocaine 1% PF 5 ML VIAL ONE (16:18)
[2021-05-05] MEDS ORDERED: Sodium Chloride 0.9% 10 ML ONE (17:48)
[2021-05-05] MEDS ORDERED: Sodium Chloride 0.9% 20 ML ONE (17:50)
[2021-05-05] MEDS ORDERED: Promethazine HCl 25 MG/ML VIAL IM PRN (18:33)
[2021-05-05] MEDS ORDERED: Ondansetron HCl/PF 4 MG/2 ML Vial IVP PRN (18:33)
[2021-05-05] MEDS: Lorazepam 2 MG/ML VIAL SLOW IVP PRN (21:07)
[2021-05-05 23:37] LABS: Potassium 3.8 mmol/L (3.5-5.1)
[2021-05-05] MEDS: Morphine 4 MG/ML VIAL SLOW IVP PRN (23:52)
[2021-05-06] MEDS: Morphine 4 MG/ML VIAL SLOW IVP PRN ×4 (04:15→18:30)
[2021-05-06] MEDS: Pantoprazole 40 MG VIAL IVP SCH ×2 (08:46→20:32)
[2021-05-06] MEDS: Simethicone Chewable 80 MG TAB PO PRN ×2 (13:04→18:34)
[2021-05-06] MEDS: Amoxicillin/Potassium Clav 600 mg/5 ml Oral Suspension PO SCH (20:26)
[2021-05-06] MEDS: Lorazepam 2 MG/ML VIAL SLOW IVP PRN (20:27)
[2021-05-07] MEDS: Amoxicillin/Potassium Clav 600 mg/5 ml Oral Suspension PO SCH ×2 (06:57→18:43)
[2021-05-07] MEDS ORDERED: Acetaminophen 325 MG TAB PO PRN (06:59)
[2021-05-07] MEDS: Simethicone Chewable 80 MG TAB PO PRN ×2 (09:38→18:43)
[2021-05-07] MEDS: Pantoprazole 40 MG VIAL IVP SCH ×2 (09:42→20:44)
[2021-05-07] MEDS: Morphine 4 MG/ML VIAL SLOW IVP PRN (09:46)
[2021-05-07] MEDS ORDERED: Piperacillin/Tazobactam 3.375 GM in Sodium Chloride 0.9% 100 ML IVPB SCH ×3 (10:00→15:00)
[2021-05-07] MEDS ORDERED: Iopamidol-370 76% 500 ML 1 ML ONE (10:10)
[2021-05-07] MEDS ORDERED: Metoprolol Tartrate 50 MG TAB PO SCH (10:30)
[2021-05-07 13:16] LABS: #Eosinphils 0.1 thou/uL (0.0-0.7); #Monocytes 0.6 thou/uL (0.11-0.59); #Neutrophils 7.4 thou/uL (1.40-6.50); %Basophils 0.3 % (0.0-1.0); %Lymphocytes 20.1 % (21.0-51.0); %Monocytes 5.7 % (0.0-10.0); %Neutrophils 72.8 % (42.0-75.0); Hemoglobin 13.4 g/dL (12.0-16.0); Mean Corpuscular HGB CONC 32.4 g/dL (32.0-36.0); Mean Corpuscular Hemoglobin 30.8 pg (27.0-31.0); Mean Corpuscular Volume 94.9 fL (78.0-98.0); Mean Platelet Volume 7.9 fL (7.4-10.4); Platelet Count 202 thou/uL (130-400); RBC Distribution Width 12.5 % (11.5-14.5); Red Blood Cell (RBC) Count 4.35 mill/uL (4.20-5.40); White Blood Cell (WBC) Count 10.1 thou/uL (4.8-10.8)
[2021-05-07] MEDS ORDERED: Polyethylene Glycol 3350 17 GM Packet PO SCH (13:30)
[2021-05-07 13:39] LABS: Anion Gap 14 mmol/L (10-20); BUN (Urea Nitrogen) 5 mg/dL (9.8-20.1); Calc. Creatinine Clearance 85 mL/min (70-130); Calcium 8.8 mg/dL (7.8-10.44); Carbon Dioxide 23 mmol/L (23-31); Chloride 104 mmol/L (98-107); Glucose 191 mg/dL (80-115); Potassium 3.5 mmol/L (3.5-5.1); Sodium 137 mmol/L (136-145)
[2021-05-07 15:17] LABS: SARS-CoV-2 PCR by NAA Not Detected (NotDetected)
[2021-05-07] MEDS: Lorazepam 2 MG/ML VIAL SLOW IVP PRN ×2 (15:56→20:44)
[2021-05-07] MEDS ORDERED: Lorazepam 2 MG/ML VIAL SLOW IVP SCH (16:00)
[2021-05-07] MEDS: Metoprolol Tartrate 50 MG TAB PO SCH (20:44)
[2021-05-08] MEDS: Amoxicillin/Potassium Clav 600 mg/5 ml Oral Suspension PO SCH ×2 (05:39→18:43)
[2021-05-08] MEDS: Simethicone Chewable 80 MG TAB PO PRN ×2 (05:42→18:50)
[2021-05-08] MEDS: Pantoprazole 40 MG VIAL IVP SCH ×2 (08:37→21:23)
[2021-05-08] MEDS: Metoprolol Tartrate 50 MG TAB PO SCH ×2 (08:38→21:23)
[2021-05-08] MEDS: Acetaminophen 650 MG Suppository PR PRN (08:54)
[2021-05-08] MEDS ORDERED: Polyethylene Glycol 3350 17 GM Packet PO SCH (09:00)
[2021-05-08] MEDS: Morphine 4 MG/ML VIAL SLOW IVP PRN (13:24)
[2021-05-08] MEDS: Lorazepam 2 MG/ML VIAL SLOW IVP PRN (21:23)
[2021-05-08] MEDS: Polyethylene Glycol 3350 17 GM Packet PER TUBE SCH (21:24)
[2021-05-09] MEDS: Morphine 4 MG/ML VIAL SLOW IVP PRN ×2 (03:08→21:05)
[2021-05-09] MEDS: Amoxicillin/Potassium Clav 600 mg/5 ml Oral Suspension PO SCH ×2 (05:56→21:06)
[2021-05-09 08:47] LABS: #Eosinphils 0.1 thou/uL (0.0-0.7); #Lymphocytes 1.9 thou/uL (1.20-3.40); #Monocytes 0.7 thou/uL (0.11-0.59); #Neutrophils 6.1 thou/uL (1.40-6.50); %Basophils 0.1 % (0.0-1.0); %Eosinophils 1.6 % (0.0-10.0); %Lymphocytes 21.9 % (21.0-51.0); %Monocytes 7.8 % (0.0-10.0); %Neutrophils 68.6 % (42.0-75.0); Hemoglobin 12.7 g/dL (12.0-16.0); Mean Corpuscular HGB CONC 32.7 g/dL (32.0-36.0); Mean Corpuscular Hemoglobin 30.7 pg (27.0-31.0); Mean Corpuscular Volume 93.9 fL (78.0-98.0); Mean Platelet Volume 7.8 fL (7.4-10.4); Platelet Count 218 thou/uL (130-400); RBC Distribution Width 12.2 % (11.5-14.5); Red Blood Cell (RBC) Count 4.15 mill/uL (4.20-5.40); White Blood Cell (WBC) Count 8.8 thou/uL (4.8-10.8)
[2021-05-09] MEDS: Metoprolol Tartrate 50 MG TAB PO SCH ×2 (08:55→21:04)
[2021-05-09] MEDS: Pantoprazole 40 MG VIAL IVP SCH ×2 (08:56→21:36)
[2021-05-09] MEDS: Polyethylene Glycol 3350 17 GM Packet PER TUBE SCH ×2 (08:57→21:36)
[2021-05-09 09:18] LABS: Anion Gap 12 mmol/L (10-20); BUN (Urea Nitrogen) 6 mg/dL (9.8-20.1); Calc. Creatinine Clearance 88 mL/min (70-130); Calcium 9.1 mg/dL (7.8-10.44); Carbon Dioxide 24 mmol/L (23-31); Chloride 105 mmol/L (98-107); Glucose 140 mg/dL (80-115); Potassium 4.2 mmol/L (3.5-5.1); Sodium 137 mmol/L (136-145)
[2021-05-09 21:42] VITALS: BP 143/84; TEMP 98.7
== END 2021-05-09 21:30 | disposition home or self-care (01) | DRG 356 ==
LOC: SURG A 14:20 → OBSVTOIN 15:52
PROVIDERS: ADMIT Family Medicine; ATTEND Internal Medicine
PROC: 0DJ08ZZ Inspection of Upper Intestinal Tract, Via Natural or Artificial Opening Endoscopic (ICD-10-PCS; principal; 2021-05-02)
PROC: 0JH60WZ Insertion of Totally Implantable Vascular Access Device into Chest Subcutaneous Tissue and Fascia, Open Approach (ICD-10-PCS; 2021-05-05)
PROC: 05HM33Z Insertion of Infusion Device into Right Internal Jugular Vein, Percutaneous Approach (ICD-10-PCS; 2021-05-05)
PROC: B5131ZA Fluoroscopy of Right Jugular Veins using Low Osmolar Contrast, Guidance (ICD-10-PCS; 2021-05-05)
PROC: B543ZZA Ultrasonography of Right Jugular Veins, Guidance (ICD-10-PCS; 2021-05-05)
PROC: 0DH68UZ Insertion of Feeding Device into Stomach, Via Natural or Artificial Opening Endoscopic (ICD-10-PCS; 2021-05-05)
DX: C15.3 Malignant neoplasm of upper third of esophagus (principal); J69.0 Pneumonitis due to inhalation of food and vomit; K94.23 Gastrostomy malfunction; I10 Essential (primary) hypertension; E78.5 Hyperlipidemia, unspecified; I25.10 Atherosclerotic heart disease of native coronary artery without angina pectoris; K21.9 Gastro-esophageal reflux disease without esophagitis; K22.2 Esophageal obstruction; E87.6 Hypokalemia; I34.0 Nonrheumatic mitral (valve) insufficiency; Y83.8 Other surgical procedures as the cause of abnormal reaction of the patient, or of later complication, without mention of misadventure at the time of the procedure; Z20.822 Contact with and (suspected) exposure to COVID-19; Z88.8 Allergy status to other drugs, medicaments and biological substances; Z79.899 Other long term (current) drug therapy; Z95.1 Presence of aortocoronary bypass graft
CPT/HCPCS: 36415; 70491; 71045; 71260; 74018; 74019; 74177; 76000; 80048; 84132; 85025; 93306; 94660; C1788; C9113; J0360; J0690; J1100; J1642; J1644; J2001; J2060; J2270; J2405; J2543; J2704; J3010; J3490; J7050; Q0162; Q9967; S0020; U0002; U0003; U0005

== ENCOUNTER 2021-05-13 08:50 | Day surgery (SDC) | payer MEDICARE, MEDICAID ==
[2021-05-11 13:19] VITALS: BMI 25.6
[2021-05-13] MEDS ORDERED: Fentanyl 100 MCG/2 ML VIAL ONE (10:48)
[2021-05-13] MEDS ORDERED: Midazolam HCl 2 mg/2 ml Vial ONE (10:48)
[2021-05-13] MEDS ORDERED: Lidocaine 1% (PF) 30 ML VIAL ONE (11:11)
[2021-05-13] MEDS ORDERED: PROPOFOL 200 MG/20 ML VIAL ONE (11:33)
== END 2021-05-13 13:21 | disposition home or self-care (01) ==
LOC: SDC 08:50
PROVIDERS: ATTEND Internal Medicine Pulmonary Disease
PROC: 0BJ08ZZ Inspection of Tracheobronchial Tree, Via Natural or Artificial Opening Endoscopic (ICD-10-PCS; principal; 2021-05-13)
DX: C15.9 Malignant neoplasm of esophagus, unspecified (principal); G47.33 Obstructive sleep apnea (adult) (pediatric); E78.5 Hyperlipidemia, unspecified; I25.10 Atherosclerotic heart disease of native coronary artery without angina pectoris; I10 Essential (primary) hypertension; I25.2 Old myocardial infarction; K21.9 Gastro-esophageal reflux disease without esophagitis; M19.90 Unspecified osteoarthritis, unspecified site; G89.29 Other chronic pain; M54.9 Dorsalgia, unspecified; Z79.899 Other long term (current) drug therapy; Z88.8 Allergy status to other drugs, medicaments and biological substances; Z95.5 Presence of coronary angioplasty implant and graft
CPT/HCPCS: J2001; J2250; J2704; J3010; J7620

== ENCOUNTER 2021-05-14 09:00 | Outpatient (CLI) | payer MEDICARE, MEDICAID | END 2021-05-14 09:01 | disposition home or self-care (01) | LOC: PET 09:00 | PROVIDERS: ATTEND Radiology Radiation Oncology | DX: C15.3 Malignant neoplasm of upper third of esophagus (principal); I65.22 Occlusion and stenosis of left carotid artery | CPT/HCPCS: 78815; A9552 ==

== ENCOUNTER 2021-07-21 19:44 | Inpatient (IN) | payer OTHER, MEDICAID, MEDICARE ==
[~2021-07-21 19:44] MED LIST: Iopamidol-370 76% 500 ML 1 ML ONE
[2021-07-21] MEDS ORDERED: Ondansetron PF 4 MG/2 ML Vial ONE (20:03)
[2021-07-21] MEDS ORDERED: Morphine 4 MG/ML VIAL ONE (20:03)
[2021-07-21] MEDS ORDERED: metroNIDAZOLE 500 MG in Premix Bag 1 BAG IVPB SCH (20:30)
[2021-07-21 20:46] LABS: #Lymphocytes 1.2 thou/uL (1.20-3.40); #Monocytes 0.7 thou/uL (0.11-0.59); #Neutrophils 3.9 thou/uL (1.40-6.50); %Basophils 0.2 % (0.0-1.0); %Eosinophils 0.7 % (0.0-10.0); %Lymphocytes 20.6 % (21.0-51.0); %Monocytes 12.3 % (0.0-10.0); %Neutrophils 66.1 % (42.0-75.0); Hemoglobin 6.4 g/dL (12.0-16.0); Mean Corpuscular HGB CONC 33.1 g/dL (32.0-36.0); Mean Corpuscular Hemoglobin 31.4 pg (27.0-31.0); Mean Corpuscular Volume 94.7 fL (78.0-98.0); Platelet Count 413 thou/uL (130-400); RBC Distribution Width 14.9 % (11.5-14.5); Red Blood Cell (RBC) Count 2.03 mill/uL (4.20-5.40)
[2021-07-21 20:58] LABS: INR-International Normal Ratio 1.5; PTT 34.4 sec (22.9-36.1); Prothrombin Time 17.8 sec (12.0-14.7)
[2021-07-21 21:15] LABS: ALT (SGPT) Less than 7 U/L (8-55); AST (SGOT) 8 U/L (5-34); Alkaline Phosphatase 41 U/L (40-110); Anion Gap 10 mmol/L (10-20); BUN (Urea Nitrogen) 6 mg/dL (9.8-20.1); Bilirubin, Total 0.2 mg/dL (0.2-1.2); Calc. Creatinine Clearance 0 mL/min (70-130); Calcium 6.8 mg/dL (7.8-10.44); Carbon Dioxide 21 mmol/L (23-31); Chloride 106 mmol/L (98-107); Globulin 2.5 g/dL (2.4-3.5); Glucose 127 mg/dL (80-115); Lipase 76 U/L (8-78); Potassium 3.3 mmol/L (3.5-5.1); Protein, Total 4.5 g/dL (5.8-8.1); Sodium 134 mmol/L (136-145)
[2021-07-21] MEDS ORDERED: Ketamine 50 MG/ML (10ML VIAL) ONE (22:21)
[2021-07-21] MEDS ORDERED: Potassium Chloride 20 MEQ TAB ONE (22:41)
[2021-07-21] MEDS ORDERED: Pot Chloride/Pot Bicarb/Cit Ac 25 mEq Effervescent Tablet ONE ×2 (22:42)
[2021-07-21] MEDS ORDERED: Piperacillin/Tazobactam 3.375 GM VIAL ONE (22:52)
[2021-07-21 23:14] LABS: Bilirubin Negative (Negative); Blood, Urine Negative (Negative); Clarity Clear (Clear); Glucose, Urine (Dipstick) Normal (Negative); Ketone, Urine Negative (Negative); Leukocyte Negative Leu/uL (Negative); Nitrite Negative (Negative); Protein, Urine (Dipstick) Negative (Neg-Trace); Specific Gravity, Urine 1.011 (1.002-1.036); Urobilinogen Normal mg/dL (Less than 2)
[2021-07-21] MEDS ORDERED: Norepinephrine 4 MG/4 ML VIAL ONE (23:26)
[2021-07-21 23:38] LABS: SARS-CoV-2 NAA Rapid Test Not Detected (NotDetected)
[2021-07-21] MEDS ORDERED: Acetaminophen 325 MG TAB PO PRN (23:42)
[2021-07-21] MEDS ORDERED: Norepinephrine 8 MG/0.9% NS 250 ML IVPB SCH (23:45)
[2021-07-21] MEDS ORDERED: Potassium Chloride 40 MEQ in Sodium Chloride 0.9% 250 ML 250 ML IVPB SCH (23:59)
[2021-07-22 00:41] VITALS: BMI 23.1
[2021-07-22] MEDS ORDERED: Melatonin 3 MG TAB PO PRN (01:21)
[2021-07-22] MEDS: Sodium Chloride 0.9% 1,000 ML IV SCH ×4 (01:22→18:46)
[2021-07-22] MEDS: Piperacillin/Tazobactam 3.375 GM in Sodium Chloride 0.9% 100 ML IVPB SCH ×3 (04:56→20:31)
[2021-07-22 05:22] LABS: #Lymphocytes 1.2 thou/uL (1.20-3.40); #Monocytes 0.8 thou/uL (0.11-0.59); #Neutrophils 4.6 thou/uL (1.40-6.50); %Basophils 0.2 % (0.0-1.0); %Eosinophils 0.4 % (0.0-10.0); %Lymphocytes 17.6 % (21.0-51.0); %Monocytes 12.6 % (0.0-10.0); %Neutrophils 69.3 % (42.0-75.0); Mean Corpuscular HGB CONC 33.7 g/dL (32.0-36.0); Mean Corpuscular Hemoglobin 31.2 pg (27.0-31.0); Mean Corpuscular Volume 92.5 fL (78.0-98.0); Platelet Count 271 thou/uL (130-400); RBC Distribution Width 13.4 % (11.5-14.5); White Blood Cell (WBC) Count 6.7 thou/uL (4.8-10.8)
[2021-07-22 05:51] LABS: Anion Gap 8 mmol/L (10-20); BUN (Urea Nitrogen) 4 mg/dL (9.8-20.1); Calc. Creatinine Clearance 122 mL/min (70-130); Calcium 5.9 mg/dL (7.8-10.44); Carbon Dioxide 19 mmol/L (23-31); Chloride 114 mmol/L (98-107); Glucose 95 mg/dL (80-115); Magnesium 1.3 mg/dL (1.6-2.6); Potassium 3.9 mmol/L (3.5-5.1); Sodium 137 mmol/L (136-145)
[2021-07-22] MEDS ORDERED: Calcium Gluc 4.6 MEQ/10 ML (100 MG/ML) SLOW IVP ONE (05:59)
[2021-07-22] MEDS ORDERED: Magnesium 2 GM/50 ML(in water) 2 GM in Premix Bag 1 BAG IVPB SCH (06:00)
[2021-07-22] MEDS: Famotidine/PF 20 mg/2ml Vial SLOW IVP SCH ×2 (10:03→20:31)
[2021-07-22 12:56] LABS: Hemoglobin 12.4 g/dL (12.0-16.0)
[2021-07-22 21:26] LABS: Hemoglobin 9.5 g/dL (12.0-16.0)
[2021-07-23] MEDS: Piperacillin/Tazobactam 3.375 GM in Sodium Chloride 0.9% 100 ML IVPB SCH ×3 (04:33→20:20)
[2021-07-23] MEDS: Sodium Chloride 0.9% 1,000 ML IV SCH ×3 (04:34→12:27)
[2021-07-23 05:10] LABS: Anion Gap 8 mmol/L (10-20); BUN (Urea Nitrogen) Less than 4 mg/dL (9.8-20.1); Calc. Creatinine Clearance 119 mL/min (70-130); Calcium 6.7 mg/dL (7.8-10.44); Carbon Dioxide 21 mmol/L (23-31); Chloride 109 mmol/L (98-107); Glucose 77 mg/dL (80-115); Magnesium 1.6 mg/dL (1.6-2.6); Potassium 3.4 mmol/L (3.5-5.1); Sodium 135 mmol/L (136-145)
[2021-07-23 06:59] LABS: Hemoglobin 9.9 g/dL (12.0-16.0); MDiff Complete? YES; Mean Corpuscular HGB CONC 34.6 g/dL (32.0-36.0); Mean Corpuscular Volume 92.4 fL (78.0-98.0); Mean Platelet Volume 6.3 fL (7.4-10.4); Platelet Count 253 thou/uL (130-400); RBC Distribution Width 14.2 % (11.5-14.5); Red Blood Cell (RBC) Count 3.09 mill/uL (4.20-5.40); White Blood Cell (WBC) Count 4.5 thou/uL (4.8-10.8)
[2021-07-23] MEDS ORDERED: Electrolyte Replacement Protocol 1 EACH FS ONE (07:07)
[2021-07-23] MEDS ORDERED: Magnesium Sulfate 2 GM in Sodium Chloride 0.9% 100 ML IVPB SCH (07:15)
[2021-07-23] MEDS ORDERED: Potassium Chloride 20 MEQ in Premix Bag 1 BAG IVPB SCH (07:15)
[2021-07-23] MEDS ORDERED: Potassium Chloride 20 MEQ TAB PO SCH (07:15)
[2021-07-23] MEDS ORDERED: Electrolyte Replacement Protocol FS PRN (07:15)
[2021-07-23] MEDS ORDERED: Magnesium 2 GM/50 ML(in water) 2 GM in Premix Bag 1 BAG IVPB SCH (07:30)
[2021-07-23] MEDS ORDERED: Potassium Bicarbonate/Cit Ac 20 MEQ TAB PO SCH (07:45)
[2021-07-23] MEDS: Famotidine 20 MG TAB PO SCH ×2 (07:50→20:20)
[2021-07-23 08:25] LABS: Band 25 % (5-11); Lymphocytes 17 % (21-51); Metamyelocyte 5 % (0-0); Monocytes 4 % (0-10); Myelocyte 1 % (0-0); Neutrophil 47 % (42-75); Nucleated RBC 1 % (0); Platelet Morphology Comment Appears Adequate; Polychromasia SLIGHT = 2-3 cells (100X) (0-2/hpf)
[2021-07-23 13:04] LABS: Potassium 3.2 mmol/L (3.5-5.1)
[2021-07-23] MEDS: Lactated Ringer's 1,000 ML IV SCH (17:04)
[2021-07-23] MEDS: Ondansetron PF 4 MG/2 ML Vial IVP PRN (20:18)
[2021-07-24] MEDS: Potassium Chloride 20 MEQ in Premix Bag 1 BAG IVPB SCH ×2 (01:16→03:37)
[2021-07-24] MEDS: Piperacillin/Tazobactam 3.375 GM in Sodium Chloride 0.9% 100 ML IVPB SCH ×2 (03:37→11:23)
[2021-07-24] MEDS: Ondansetron PF 4 MG/2 ML Vial IVP PRN ×2 (03:37→11:24)
[2021-07-24] MEDS: Lactated Ringer's 1,000 ML IV SCH (05:33)
[2021-07-24 06:49] LABS: Hemoglobin 9.7 g/dL (12.0-16.0); Mean Corpuscular HGB CONC 34.3 g/dL (32.0-36.0); Mean Corpuscular Hemoglobin 31.5 pg (27.0-31.0); Mean Corpuscular Volume 91.9 fL (78.0-98.0); Mean Platelet Volume 5.8 fL (7.4-10.4); Platelet Count 342 thou/uL (130-400); RBC Distribution Width 14.1 % (11.5-14.5); Red Blood Cell (RBC) Count 3.07 mill/uL (4.20-5.40); White Blood Cell (WBC) Count 4.4 thou/uL (4.8-10.8)
[2021-07-24 07:00] LABS: Phosphorus 2.1 mg/dL (2.3-4.7)
[2021-07-24 07:00] LABS: ALT (SGPT) Less than 7 U/L (8-55); AST (SGOT) 11 U/L (5-34); Albumin 2.3 g/dL (3.4-4.8); Alkaline Phosphatase 41 U/L (40-110); Anion Gap 11 mmol/L (10-20); BUN (Urea Nitrogen) Less than 4 mg/dL (9.8-20.1); Bilirubin, Total 0.3 mg/dL (0.2-1.2); Calc. Creatinine Clearance 116 mL/min (70-130); Calcium 7.3 mg/dL (7.8-10.44); Carbon Dioxide 22 mmol/L (23-31); Chloride 107 mmol/L (98-107); Globulin 2.8 g/dL (2.4-3.5); Glucose 76 mg/dL (80-115); Magnesium 1.7 mg/dL (1.6-2.6); Potassium 3.7 mmol/L (3.5-5.1); Protein, Total 5.1 g/dL (5.8-8.1); Sodium 136 mmol/L (136-145)
[2021-07-24 07:38] LABS: Band 33 % (5-11); Lymphocytes 16 % (21-51); MDiff Complete? YES; Metamyelocyte 2 % (0-0); Monocytes 11 % (0-10); Neutrophil 31 % (42-75); Platelet Morphology Comment Appears Adequate; Polychromasia SLIGHT = 2-3 cells (100X) (0-2/hpf); Reactive Lymphocytes 7 % (0-10); Tear Drops SLIGHT = 2-5 cells (100X) (0-1/hpf)
[2021-07-24] MEDS ORDERED: Magnesium 2 GM/50 ML(in water) 2 GM in Premix Bag 1 BAG IVPB SCH (09:15)
[2021-07-24] MEDS: Famotidine 20 MG TAB PO SCH (09:21)
[2021-07-24 15:22] VITALS: BP 126/84; TEMP 97.9
== END 2021-07-24 16:33 | disposition home health service (06) | DRG 377 ==
LOC: ERS 19:44 → CCU 22:10 → T4-A 07-23 10:43
PROVIDERS: ADMIT Internal Medicine; ATTEND Family Medicine
PROC: 30233N1 Transfusion of Nonautologous Red Blood Cells into Peripheral Vein, Percutaneous Approach (ICD-10-PCS; principal; 2021-07-21)
PROC: 3E033XZ Introduction of Vasopressor into Peripheral Vein, Percutaneous Approach (ICD-10-PCS; 2021-07-21)
DX: K57.33 Diverticulitis of large intestine without perforation or abscess with bleeding (principal); R57.8 Other shock; D62 Acute posthemorrhagic anemia; C15.9 Malignant neoplasm of esophagus, unspecified; I25.810 Atherosclerosis of coronary artery bypass graft(s) without angina pectoris; Z20.822 Contact with and (suspected) exposure to COVID-19; K21.9 Gastro-esophageal reflux disease without esophagitis; E78.00 Pure hypercholesterolemia, unspecified; E78.5 Hyperlipidemia, unspecified; F41.9 Anxiety disorder, unspecified; E87.6 Hypokalemia; I10 Essential (primary) hypertension; E83.42 Hypomagnesemia; L59.8 Other specified disorders of the skin and subcutaneous tissue related to radiation; Z90.49 Acquired absence of other specified parts of digestive tract; Z95.1 Presence of aortocoronary bypass graft; Z90.710 Acquired absence of both cervix and uterus; Z88.8 Allergy status to other drugs, medicaments and biological substances; Z95.5 Presence of coronary angioplasty implant and graft; Z87.891 Personal history of nicotine dependence; Z93.1 Gastrostomy status
CPT/HCPCS: 36415; 36430; 36556; 51701; 71045; 74177; 80048; 80053; 81003; 83605; 83690; 83735; 84100; 85025; 85610; 85730; 86850; 86900; 86901; 87040; 87086; 96365; 96368; 96374; 96375; 99152; J0610; J2270; J2405; J2543; J3475; J3480; J3490; J7050; J7120; P9016; Q9967; S0028; U0002

== ENCOUNTER 2021-10-19 10:15 | Outpatient (CLI) | payer MEDICARE, OTHER | END 2021-10-19 10:16 | disposition home or self-care (01) | LOC: PET 10:15 | PROVIDERS: ATTEND Radiology Radiation Oncology | DX: C15.3 Malignant neoplasm of upper third of esophagus (principal) | CPT/HCPCS: 78815; A9552 ==

== ENCOUNTER 2021-11-02 10:50 | Outpatient (CLI) | payer MEDICARE | END 2021-11-02 10:51 | disposition home or self-care (01) | LOC: LABBT 10:50 | PROVIDERS: ATTEND Internal Medicine Gastroenterology | DX: Z20.822 Contact with and (suspected) exposure to COVID-19 (principal) | CPT/HCPCS: 87811 ==

== ENCOUNTER 2021-11-05 06:11 | Day surgery (SDC) | payer OTHER, MEDICAID ==
[2021-11-03 13:37] VITALS: BMI 21.4
[2021-11-05] MEDS ORDERED: Lidocaine 1% MPF 2 ML VIAL ONE (06:40)
[2021-11-05] MEDS ORDERED: fentaNYL Citrate/PF 100 MCG/2 ML SYRINGE ONE (08:09)
== END 2021-11-05 10:31 | disposition home or self-care (01) ==
LOC: SDC 06:11
PROVIDERS: ATTEND Internal Medicine Gastroenterology
PROC: 0D758ZZ Dilation of Esophagus, Via Natural or Artificial Opening Endoscopic (ICD-10-PCS; principal; 2021-11-05)
DX: K22.2 Esophageal obstruction (principal); K44.9 Diaphragmatic hernia without obstruction or gangrene; K21.9 Gastro-esophageal reflux disease without esophagitis; I25.2 Old myocardial infarction; E78.00 Pure hypercholesterolemia, unspecified; I10 Essential (primary) hypertension; G47.33 Obstructive sleep apnea (adult) (pediatric); I25.10 Atherosclerotic heart disease of native coronary artery without angina pectoris; Z85.01 Personal history of malignant neoplasm of esophagus; Z92.21 Personal history of antineoplastic chemotherapy; Z92.3 Personal history of irradiation; Z87.891 Personal history of nicotine dependence; Z79.899 Other long term (current) drug therapy; Z88.8 Allergy status to other drugs, medicaments and biological substances; Z91.02 Food additives allergy status; Z95.5 Presence of coronary angioplasty implant and graft

== ENCOUNTER 2022-02-07 05:59 | Day surgery (SDC) | payer OTHER, MEDICAID ==
[2022-02-07] MEDS ORDERED: PROPOFOL 200 MG/20 ML VIAL ONE (08:23)
[2022-02-07 11:24] VITALS: BMI 22.8
== END 2022-02-07 09:10 | disposition home or self-care (01) ==
LOC: SDC 05:59
PROVIDERS: ATTEND Internal Medicine Gastroenterology
PROC: 0D718ZZ Dilation of Upper Esophagus, Via Natural or Artificial Opening Endoscopic (ICD-10-PCS; principal; 2022-02-07)
DX: K22.2 Esophageal obstruction (principal); K44.9 Diaphragmatic hernia without obstruction or gangrene; G47.33 Obstructive sleep apnea (adult) (pediatric); E78.5 Hyperlipidemia, unspecified; I25.10 Atherosclerotic heart disease of native coronary artery without angina pectoris; I10 Essential (primary) hypertension; I25.2 Old myocardial infarction; K21.9 Gastro-esophageal reflux disease without esophagitis; L40.9 Psoriasis, unspecified; Z85.01 Personal history of malignant neoplasm of esophagus; Z79.2 Long term (current) use of antibiotics; Z79.899 Other long term (current) drug therapy; Z88.8 Allergy status to other drugs, medicaments and biological substances; Z91.02 Food additives allergy status; Z95.5 Presence of coronary angioplasty implant and graft; Y84.2 Radiological procedure and radiotherapy as the cause of abnormal reaction of the patient, or of later complication, without mention of misadventure at the time of the procedure
CPT/HCPCS: J2704

== ENCOUNTER 2022-04-27 08:40 | Outpatient (CLI) | payer OTHER ==
[2022-04-27] MEDS ORDERED: Iopamidol 370 76% 100 ML VIAL ONE (08:42)
== END 2022-04-27 08:41 | disposition home or self-care (01) ==
LOC: CT 08:40
PROVIDERS: ATTEND Radiology Radiation Oncology
DX: C15.3 Malignant neoplasm of upper third of esophagus (principal); I65.23 Occlusion and stenosis of bilateral carotid arteries; Z92.3 Personal history of irradiation
CPT/HCPCS: 70491; 71260; 74177; 82565; Q9967

== ENCOUNTER 2022-07-21 08:47 | Outpatient (CLI) | payer OTHER | END 2022-07-21 08:48 | disposition home or self-care (01) | LOC: TBSIIMAG 08:47 | PROVIDERS: ATTEND Internal Medicine Cardiovascular Disease | DX: I65.23 Occlusion and stenosis of bilateral carotid arteries (principal) | CPT/HCPCS: 70548 ==

== ENCOUNTER 2022-08-07 12:40 | Outpatient (CLI) | payer OTHER | END 2022-08-07 12:41 | disposition home or self-care (01) | LOC: SJX 12:40 | PROVIDERS: ATTEND Nurse Practitioner Family | DX: M54.2 Cervicalgia (principal) | CPT/HCPCS: 72040 ==

== ENCOUNTER 2022-12-02 08:36 | Outpatient (CLI) | payer OTHER | END 2022-12-02 08:37 | disposition home or self-care (01) | LOC: RAD 08:36 | PROVIDERS: ATTEND Family Medicine | DX: M54.50 Low back pain, unspecified (principal); M25.551 Pain in right hip; M47.816 Spondylosis without myelopathy or radiculopathy, lumbar region; S32.029A Unspecified fracture of second lumbar vertebra, initial encounter for closed fracture; M46.1 Sacroiliitis, not elsewhere classified; M16.0 Bilateral primary osteoarthritis of hip | CPT/HCPCS: 36415; 72100; 82550; 85652; 86140 ==

== ENCOUNTER 2023-04-11 13:31 | Outpatient (CLI) | payer OTHER | END 2023-04-11 13:32 | disposition home or self-care (01) | LOC: BICMAMMO 13:31 | PROVIDERS: ATTEND Family Medicine | DX: Z12.31 Encounter for screening mammogram for malignant neoplasm of breast (principal); Z85.818 Personal history of malignant neoplasm of other sites of lip, oral cavity, and pharynx | CPT/HCPCS: 77063; 77067 ==

== ENCOUNTER 2023-05-15 08:24 | Outpatient (CLI) | payer OTHER ==
[2023-05-15] MEDS ORDERED: Iopamidol 370 76% 100 ML VIAL ONE (08:28)
== END 2023-05-15 08:25 | disposition home or self-care (01) ==
LOC: CT 08:24
PROVIDERS: ATTEND Radiology Radiation Oncology
DX: C15.3 Malignant neoplasm of upper third of esophagus (principal)
CPT/HCPCS: 70491; 71260; 74177; 82565; Q9967

== ENCOUNTER 2024-03-22 10:06 | Emergency (ER) | payer OTHER, MEDICAID ==
[2024-03-22] MEDS ORDERED: Ondansetron PF 4 MG/2 ML Vial ONE (10:58)
[2024-03-22] MEDS ORDERED: Morphine 4 MG/ML VIAL ONE (10:58)
[2024-03-22 11:12] LABS: #Basophils 0.03 10x3/uL (0.0-0.2); %Basophils 0.3 % (0.0-1.0); %Eosinophils 0.8 % (0.0-10.0); %Lymphocytes 19.2 % (21.0-51.0); %Monocytes 9.4 % (0.0-10.0); Hematocrit 42.1 % (36.0-47.0); Mean Corpuscular HGB CONC 33.3 g/dL (32.0-36.0); Mean Corpuscular Hemoglobin 29.4 pg (27.0-31.0); Mean Corpuscular Volume 88.4 fL (78.0-98.0); Platelet Count 235 10x3/uL (130-400); Red Blood Cell (RBC) Count 4.76 mill/uL (4.20-5.40)
[2024-03-22 11:34] LABS: ALT (SGPT) 9 U/L (8-55); AST (SGOT) 15 U/L (5-34); Alkaline Phosphatase 55 U/L (40-110); Anion Gap 12 mmol/L (10-20); BUN (Urea Nitrogen) 8 mg/dL (9.8-20.1); Bilirubin, Total 0.6 mg/dL (0.2-1.2); Calc. Creatinine Clearance 0 mL/min (70-130); Calcium 9.8 mg/dL (7.8-10.44); Carbon Dioxide 24 mmol/L (23-31); Estimated GFR 91; Globulin 4.2 g/dL (2.4-3.5); Glucose 110 mg/dL (83-110); Potassium 4.1 mmol/L (3.5-5.1); Protein, Total 8.2 g/dL (5.8-8.1)
[2024-03-22 11:39] LABS: Troponin I Less than 0.010 ng/mL (< 0.028)
[2024-03-22 12:17] LABS: Chloride 105 mmol/L (98-107); Sodium 137 mmol/L (136-145)
== END 2024-03-22 13:45 | disposition home or self-care (01) ==
LOC: ERS 10:06
DX: G89.18 Other acute postprocedural pain (principal); M54.6 Pain in thoracic spine; M54.2 Cervicalgia; R07.0 Pain in throat; I10 Essential (primary) hypertension
CPT/HCPCS: 71260; 80053; 84484; 85025; 93005; 96374; 96375; 99285; J2272; J2405

== ENCOUNTER 2024-05-13 08:30 | Outpatient (CLI) | payer OTHER, MEDICAID ==
[2024-05-13] MEDS ORDERED: Iopamidol 370 76% 100 ML VIAL ONE (09:09)
== END 2024-05-13 08:31 | disposition home or self-care (01) ==
LOC: BICCT 08:30
PROVIDERS: ATTEND Radiology Radiation Oncology
DX: C15.3 Malignant neoplasm of upper third of esophagus (principal)
CPT/HCPCS: 36415; 70491; 71260; 74177; 82565

== ENCOUNTER 2024-05-29 13:41 | Outpatient (CLI) | payer OTHER, MEDICAID | END 2024-05-29 13:42 | disposition home or self-care (01) | LOC: BICMAMMO 13:41 | PROVIDERS: ATTEND Family Medicine | DX: Z12.31 Encounter for screening mammogram for malignant neoplasm of breast (principal); Z85.21 Personal history of malignant neoplasm of larynx | CPT/HCPCS: 77063; 77067 ==